=== PATIENT | female | born 1940 | race Caucasian/White ===

== ENCOUNTER 2018-03-28 15:39 | Inpatient (IN) | payer BC ==
[~2018-03-28] VITALS: Ht 170.2 cm; Wt 86.4 kg
[2018-03-28] VITALS (7 sets, daily range): BP systolic 121–190; BP diastolic 60–79
[~2018-03-28 15:39] MED LIST: AMBIEN 10 MG TA10 MG PO; AMBIEN 5 MG TABL5 M1 PO; ASPIR 8181 MG PO; BUTRANS1 EAC1 TD; CELEXA 20 MG TA20 M1 PO; CIPROFLOXACIN500 M1 PO; CLONAZEPAM 1 MG1 M1 PO; COZAAR 50 MG TA50 M1 PO; COZAAR100 MG PO; CYMBALTA60 MG PO; DIFLUCAN150 MG PO; EUCERIN CREME57 GM TOP; FISH OIL 1,2001 EAC4 PO; GLUCOPHAGE1000 MG PO; GLUCOPHAGE500 MG PO; HUMALOG100 UNIT/1 SUBQ; HYDROCODON-ACE1 EAC1 PO; HYDROCODON-ACE1 EAC7 PO; HYDROCODON-ACE1 EACH PO; HYDROCODONE-APA1 TA1 PO; IMMODIUM PO; LANTUS SOL100 UNIT/1 SUBQ; LANTUS SQ; LANTUS SUBQ; LANTUSSOLASTAR SUBQ; LEVEMIR SUBQ; LIDODERM 5%1 PATC1 TRANSDERM; LIORESAL 10 MG10 MG PO; LORTAB 5-500 T1 EAC1 PO; MACROBID 100 M100 M1 PO; METOPROLOL SUCC25 M1 PO; MIRALAX255 GM PO; MONISTAT 745 GM VG; NAPROSYN500 MG PO; NORCO 7.5-3251 EACH PO; NORVASC 5 MG TAB5 MG PO; NORVASC10 MG PO; NORVASC5 MG PO; NOVOLOG FLEX PEN SUBQ; NOVOLOG100 UNIT/1 SQ; OXYCODONE HCL5 M1 PO; OXYCONTIN10 M1 PO; PERCOCET 10-321 EACH PO; PERCOCET 5-3251 EACH PO; PERCOCET 7.5-31 EACH PO; PRILOSEC 20 MG20 MG PO; REMERON15 MG PO; ROXICODONE5 MG PO; SYMLIN0.6 MG/ML SQ; SYMLINPEN2700 MCG/2 SUBQ; TOPROL XL100 MG PO; VICODIN 5-5001 EACH PO; VICODIN ES 7.51 EACH PO; VICTOZA0.6 MG/0.1 SUBQ; WELCHOL 625 MG625 MG PO; XARELTO10 M1 PO
[2018-03-28 15:57] LABS: URINE BILIRUBIN NEGATIVE (Negative); URINE BLOOD NEGATIVE (Negative); URINE CLARITY CLEAR; URINE COLOR YELLOW; URINE GLUCOSE-RANDOM NEGATIVE (Negative); URINE KETONES NEGATIVE (Negative); URINE LEUKOCYTES-REFLEX NEGATIVE (Negative); URINE PROTEIN NEGATIVE (Negative); URINE SPECIFIC GRAVITY 1.015 (1.005-1.030); URINE UROBILINOGEN 0.2 E.U./dl (0.2-1.0)
[2018-03-28 16:06] LABS: URINE NITRITE-REFLEX POSITIVE (Negative)
[2018-03-28 16:08] LABS: BACTERIA-REFLEX >30 Many /HPF (None Seen); CRYSTALS None Seen /LPF (None Seen); HYALINE CASTS 0-3 Few /LPF (None Seen); SQUAMOUS 4-10 Moderate /LPF (0-3)
[2018-03-28 16:08] LABS: HEMATOCRIT 39.5 % (37.0-47.0); HEMOGLOBIN 12.8 gm/dL (12.0-15.0); MCHC 32.3 g/dL (28.0-37.0); MCV 86.5 fL (80.0-100.0); MPV 8.2 fl. (7.2-11.1); NUCLEATED RBCS 0 /100WBC; PLATELET COUNT* 417 thou/uL (150-400); RBC 4.57 mil/uL (4.20-5.00); RDW-CV 14.5 % (10.5-14.5)
[2018-03-28 16:10] LABS: URINE RBC 0-2 Rare /HPF (0-2); URINE WBC-REFLEX 0-5 Rare /HPF (0-5)
[2018-03-28 16:15] LABS: ANION GAP 12 mmol/L (7-16); BUN 20 mg/dL (7-18); CALCIUM 8.9 mg/dL (8.5-10.1); CHLORIDE 99 mmol/L (98-107); CO2 22 mmol/L (21-32); CREATININE 1.1 mg/dL (0.6-1.3); GLUCOSE 214 mg/dL (70-99); POTASSIUM 3.6 mmol/L (3.5-5.1); SODIUM 133 mmol/L (136-145)
--- NOTE | 2018-03-28 16:23 | NUR ---
NAVDEEP BOWEN APPLIED TO PT.
[2018-03-28 16:25] LABS: ALBUMIN 3.6 g/dL (3.4-5.0); ALKALINE PHOSPHATASE 102 U/L (46-116); MAGNESIUM 1.5 mg/dL (1.8-2.4); NT-PRO BRAIN NAT PEPTIDE 458 pg/mL (<300); SGOT 24 U/L (15-37); SGPT 25 U/L (30-65); TOTAL BILIRUBIN 0.2 mg/dL (<0.1-1.0); TOTAL PROTEIN 8.2 g/dL (6.4-8.2); TROPONIN-I LEVEL <0.06 ng/mL (<0.06)
[2018-03-28 16:29] LABS: ABSOLUTE EOSINOPHILS 0.2 thou/uL (0.0-0.7); ABSOLUTE LYMPHOCYTES 3.4 thou/uL (0.8-5.3); ABSOLUTE MONOCYTES 0.8 thou/uL (0.0-1.2); ABSOLUTE NEUTROPHILS 15.6 thou/uL (1.6-8.1); PLATELET ESTIMATE INCREASED
--- NOTE | 2018-03-28 16:31 | NUR ---
UPDATE FROM PT'S : PT'S STATES THAT THE PT HAD COMPLAINTS ALL NIGHT OF ABDOMINAL PAIN AND DID NOT SLEEP WELL. HE STATES THAT HE WOKE UP THIS MORNING AND WENT TO [facility], WHEN HE RETURNED HOME FROM [facility], THE PT WAS UNRESPONSIVE LYING IN BED. THAT IS WHEN PT'S CALLED EMS.
[2018-03-28 16:40] LABS: BE -4.9 mmol/L (-2 to +3); HCO3 21.4 mmol/L (22.0-26.0); PCO2 44.4 mmHg (35.0-45.0); pH 7.301 (7.340-7.450)
[2018-03-28 16:42] LABS: PO2 178.9 mmHg (75.0-100.0)
[2018-03-28 17:05] LABS: AMP/METHAMP Negative (Negative); BARBITURATES Negative (Negative); BENZODIAZEPINES Negative (Negative); COCAINE Negative (Negative); METHADONE Negative (Negative); OPIATES Negative (Negative); PCP Negative (Negative); THC Negative (Negative)
[2018-03-28 23:29] LABS: APTT 25.2 Seconds (25.0-31.3); INR 1.1; PROTIME 10.5 Seconds (9.20-11.50)
[2018-03-29] VITALS (26 sets, daily range): BP systolic 115–195; BP diastolic 54–113
--- NOTE | 2018-03-29 01:10 | NUR ---
PT. HAS BEEN CONSTANTLY MOANING, SAYING "PLEASE, PLEASE, PLEASE". WHEN ASKED WHAT IS BOTHERING HER, SHE IS UNABLE TO COMMUNICATE WHAT IS MAKING HER UPSET. WHEN ASKED IF SHE HURTS SHE GOES BACK AND FORTH BETWEEN YES AND NO. EXTERMELY RESTLESS. DR. GRIFFITH NOTIFIED, ORDER RECEIVED FOR ONETIME DOSE OF FENTANYL AND ATIVAN. PT. IS ALLERGIC TO ATIVAN, DID NOT GIVE. FENTANYL GIVEN, WILL CONTINUE TO MONITOR.
[2018-03-29 04:57] LABS: ABSOLUTE LYMPHOCYTES 2.5 thou/uL (0.8-5.3); ABSOLUTE MONOCYTES 1.3 thou/uL (0.0-1.2); ABSOLUTE NEUTROPHILS 13.8 thou/uL (1.6-8.1); BASOPHILS 0.2 %; EOSINOPHILS 0.2 %; HEMOGLOBIN 11.1 gm/dL (12.0-15.0); LYMPHOCYTES 14.2 %; MCH 27.7 pg (26.0-34.0); MCHC 32.5 g/dL (28.0-37.0); MONOCYTES 7.4 %; MPV 8.3 fl. (7.2-11.1); NUCLEATED RBCS 0 /100WBC; PLATELET COUNT* 375 thou/uL (150-400); RDW-CV 14.9 % (10.5-14.5); WBC 17.7 thou/uL (4.0-11.0)
[2018-03-29 05:01] LABS: CALCIUM 8.6 mg/dL (8.5-10.1); MAGNESIUM 1.8 mg/dL (1.8-2.4)
--- NOTE | 2018-03-29 05:57 | NUR ---
PT. HAS BEEN UP, ANXIOUS, RESTLESS THROUGHOUT NIGHT. CONFUSED. UNABLE TO COMMUNICATE CONCERNS VERBALLY. REORIENTED THROUGHOUT SHIFT. PT. FELL ASLEEP FOR THE FIRST TIME AT 0530, REMAINS ASLEEP AT THIS TIME. PT'S DAUGHTER, GALE, UPDATED THIS A.M. ON PT. STATUS. REMAINS ON 2L O2. SINUS RHYTHM. LEFT SUBCLAVIAN CENTRAL LINE REMAINS IN PLACE WITH IVF INFUSING. BED ALARM ON TO MAINTAIN SAFETY. PT. DOES NOT USE HER CALL LIGHT, IS NOT ABLE TO SUCCESSFULLY EXPRESS HER NEEDS. WILL CONTINUE TO MONITOR.
--- NOTE | 2018-03-29 18:22 | NUR ---
PT ASSESSMENT CHARTED. VSS THROUGHOUT SHIFT. PRN HYDROLAZINE GIVEN FOR ELEVATED BLOOD PRESSURE. PO MEDICATIONS STARTED WELL. PT'S MENTAL STATUS IS MUCH IMPROVED THIS AFTERNOON. PT IS ALERT AND ORIENTED TO PERSON, PLACE, AND SITUATION. PATIENT COMPLAINS OF PAIN IN HER HEAD 10/10 SOMEWHAT RELIEVED WITH TYLENOL. TEMPERATURE ELEVATED WELL WITH A T-MAX OF 100.4 THIS SHIFT. PT IS VERY RESTLESS THIS EVENING. 1X DOSE OF GEODON GIVEN PER PHYSICIAN REQUEST. IT WAS GIVEN LATER IN THE DAY DUE TO PATIENT RESTING ON HER OWN WITHOUT DIFFICULTY THIS MORNING. I SPOKE WITH HE STATED THAT HE WASN'T SURE WHAT MEDICATION SHE WAS OUT OF. [facility] WAS CONTACTED FOR A LIST BUT THEY ARE CLOSED TODAY. PT WAS ABLE TO VERBALIZE WITH ME LATER IN THE DAY AND TELL ME THAT SHE IS OUT OF AMBIEN AT HOME AND HAS NOT HAD IT FOR 3 DAYS.
--- NOTE | 2018-03-29 20:24 | CON ---
[address] [address] CONSULTATION Name: BETO OBREGON Room: [address] IN M.R.#: [id number] Admission: 03/28/18 Attend Phys: Kwadwo Kirkpatrick MD Discharge: Date of : 42 Report #: [id number] THIS REPORT FOR: //name// CC: Kwadwo Kirkpatrick [facility] unknown DATE OF SERVICE: 03/29/2018 HISTORY OF PRESENT ILLNESS: This is a 77-year-old female patient who is not able to provide any reliable history. This patient neither cooperate with the examination nor provide any history. According to the , this patient has some issues with the back and knee. She spends according to her about 22 hours in the bed, but she does get up. She does not drive. She does have some memory issue, but in the last few days, she has become worse. The history is not available at all from the family and the history is very poor from the whom I called and talked to. This patient is not sleeping well. She does have a history of depression, it is not clear whether she is taking the medication properly. She has been given some oil of marijuana for her to sleep. REVIEW OF SYSTEMS: I tried to carry out the 14-point review of systems from the record and the patient. She has a history of hysterectomy, breast cysts, hemorrhoidectomy, diabetes and she has a pretty significant history of depression. This is all the 14-point review of system I can carry out. PAST MEDICAL HISTORY: Positive for what looks like pretty compromised quality of life, but that appeared to be secondary to knee problem. FAMILY HISTORY: Negative for early age stroke. SOCIAL HISTORY: The says the patient does not drink alcohol. PHYSICAL EXAMINATION: Almost impossible. I tried to carry it out multiple times, but she will not cooperate. I tried to do the higher function. She will not tell me what month or what day it is. I tried to do the cranial nerve examination, she will not cooperate. She moves all 4 extremities the best I can tell. She does not have any meningeal sign the best I can tell. Respiratory examination is unremarkable. She is moderately built individual. Her vision and hearing look adequate. Her blood pressure is 147/58, respiration is 13, pulse is 81, temperature is 99.3. LABORATORY DATA: She does have finding consistent with bladder infection and her white count is high. According to the , she has become like this in the past when she had a urinary tract infection. IMPRESSION: Very difficult to form in this patient as no reliable history is available. This patient probably has encephalopathy [place] [address] CONSULTATION Name: BETO OBREGON Room: [address] IN .R.#: [id number] Admission: 03/28/18 Attend Phys: Kwadwo Kirkpatrick MD Discharge: Date of : 41 Report #: [id number] infection, but central nervous system infection cannot be fully excluded. RECOMMENDATION: I talked to the patient's because the patient does not understand everything. I recommended proceeding with further workup including MRI and a spinal tap. He wants to proceed with MRI, but does not want to proceed with spinal tap at the moment. I discussed with him that it is my recommendation we do proceed because she is running temperature and has an altered mental status, but he does not want me to proceed that, but indicated he will do that if MRI is negative, but do understand the best thing is to do it as early as possible. Thank you very much for this referral and we will arrange this workup and go from there. <ELECTRONICALLY SIGNED> By: Karlos Monet MD 03/29/184 1039 [id number] Monet MD /nt
--- NOTE | 2018-03-29 23:54 | NUR ---
PT ALERT X3, TO SELF, PLACE, AND DAY, RESTLESS, ANXIOUS, MULTIPLE NEEDS, C/O GENERALIZED PAIN, TYLENOL 650MG PO GIVEN FOR PAIN MANAGEMENT AND FEVER 101.5 CORE, C/O INSOMNIA, REQUESTED SOMETHING FOR SLEEP, PT STATES NORMALLY TAKES AMBIEN FOR REST HOME MEDICATION, VERIFIED AMBIEN ON [facility] MEDICATION LIST, CALLED AND SPOKE WITH DR SAWYER MILLINERY COPYIST FOR DR GRIFFITH, NEW ORDERS RECEIVED FOR AMBIEN 15MG PO QHS PRN, PT C/O "CANT BREATH" SA02 =>94%, RESP EVEN AND NON-LABORED ON RA, REFUSED OXYGEN VIA NC, STATES OXYGEN CAUSES "STUFFY NOSE", REQUESTED AND RECEIVED HS SNACK, STATES "CANT SWALLOW", NO DIFFICULTY NOTED WITH EATING OR DRINKING AT THIS TIME, ABLE TO CONSUME TURKEY SANDWHICH WITHOUT DIFFICULTY WITH ONLY SET UP ASSIST, BLANKETS REOMVED TO ASSIST DECREASED HYPERTHERMIA WITH FAN IN USE, EMOTIONAL SUPPORT PROVIDED, BED ALARM ON FOR SAFETY, CALL LIGHT IN REACH, WILL CONTINUE TO MONITOR.
[2018-03-30] VITALS (7 sets, daily range): BP systolic 109–192; BP diastolic 50–96
[2018-03-30 04:52] LABS: ABSOLUTE BASOPHILS 0.1 thou/uL (0.0-0.2); ABSOLUTE EOSINOPHILS 0.2 thou/uL (0.0-0.7); ABSOLUTE LYMPHOCYTES 3.5 thou/uL (0.8-5.3); ABSOLUTE MONOCYTES 1.5 thou/uL (0.0-1.2); ABSOLUTE NEUTROPHILS 11.2 thou/uL (1.6-8.1); BASOPHILS 0.5 %; EOSINOPHILS 1.3 %; HEMATOCRIT 38.7 % (37.0-47.0); HEMOGLOBIN 12.5 gm/dL (12.0-15.0); LYMPHOCYTES 21.2 %; MCH 27.8 pg (26.0-34.0); MCHC 32.3 g/dL (28.0-37.0); MCV 85.9 fL (80.0-100.0); MPV 7.9 fl. (7.2-11.1); NUCLEATED RBCS 0 /100WBC; PLATELET COUNT* 428 thou/uL (150-400); RBC 4.51 mil/uL (4.20-5.00); RDW-CV 15.2 % (10.5-14.5); WBC 16.4 thou/uL (4.0-11.0)
[2018-03-30 05:18] LABS: ALBUMIN 3.1 g/dL (3.4-5.0); CALCIUM 8.6 mg/dL (8.5-10.1); CREATININE 0.9 mg/dL (0.6-1.3); TOTAL BILIRUBIN 0.5 mg/dL (<0.1-1.0); TOTAL PROTEIN 7.5 g/dL (6.4-8.2)
--- NOTE | 2018-03-30 05:41 | NUR ---
POTSSIUM LEVEL LOW 3.0 THIS AM, WILL INITATE ELECTROLYTE PROTOCOL TOTAL 120MEQ IV VIA INFUSION PUMP OVER 12 HOURS, BAG 11/07 TO BE STARTED AT THIS TIME.
--- NOTE | 2018-03-30 09:39 | EKG ---
[place] [address] ELECTROCARDIOGRAM REPORT Name: BETO OBREGON Room: [address] IN [facility]#: [id number] Admission: 03/28/18 Attend Phys: Kwadwo Kirkpatrick MD Discharge: Date of : 41 Report #: [id number] THIS REPORT FOR: //name// [facility] ED Test Date: 2018-03-28 Test Time: 17:39:10 Pat Name: BETO OBREGON Department: Room: Gender: F [employer] Manager: [facility] : 1940 Requested By: Za Trujillo Order Number: [id number] MD: Tate Uribe Measurements Intervals Merkel Rate: 58 P: 56 TX: 149 QRS: -2 QRSD: 100 T: 123 QT: 476 QTc: 468 Interpretive Statements Sinus rhythm Anteroseptal infarct, old Abnormal T, consider ischemia, lateral leads Compared to ECG 07/16/2013 07:54:22 Myocardial infarct finding now present T-wave abnormality now present Possible ischemia now present Electronically Signed On 03-30-2018 9:39:41 CDT by Tate Uribe [email or web address] <ELECTRONICALLY SIGNED> By: Tate Uribe MD, [facility] 03/30/18 0939 1739 1739 Tate Uribe MD, [facility] /EPI
--- NOTE | 2018-03-30 10:30 | NUR ---
INTERDISICPLINARY ROUNDS: MET WITH PT AND SPOUSE TO DISCUSS HOME SITUAITON/DC PLANNING. PT LIVES WITH SPOUSE. HE ASSISTS HER NEEDED WITH ADLS. PT USES WALKER IN THE HOUSE AND W/C WHEN OUTSIDE. THEY GO OUT 3X/WK FOR MEALS OR TO [facility]. PT HAS SHOWER BENCH AND HOSPITAL BED ALSO. SHE HAS HAD HH IN THE PAST WITH [facility] AND HAS BEEN TO [facility] AND [facility] FOR SNF. SPOUSE IS DPOA. UNSURE OF PT'S DC NEEDS AT THIS TIME. WILL FOLLOW
--- NOTE | 2018-03-30 14:19 | 2DMMODE ---
[place] [address] 2 D/M-MODE ECHOCARDIOGRAM Name: BETO OBREGON Room: [address] IN [facility]#: [id number] Admission: 03/28/18 Attend Phys: Kwadwo Kirkpatrick, Discharge: Date of : 42 Date of Service: 03/30/18 1418 Report #: [id number] THIS REPORT FOR: //name// APPROVED REPORT Study performed: 03/30/2018 10:10:46 EXAM: Comprehensive 2D, Doppler, and color-flow Echocardiogram Patient Location: In-Patient Room #: [facility] Status: routine BSA: 2.01 HR: 85 bpm BP: 109/50 mmHg Rhythm: NSR Other Information Study Quality: Good Indications Abnormal ECG 2D Dimensions LVEF(%): 78.89 (>50%) IVSd: 9.92 (7-11mm) LVOT Diam: 22.23 (18-24mm) LVDd: 47.27 mm PWd: 9.46 (7-11mm) LVDs: 24.81 (25-40mm) Aortic Root: 30.36 mm Oneil's LVEF: 78.89 % Volumes Left Atrial Volume (Systole) LA ESV Index: 24.20 mL/m2 Aortic Valve AoV Peak Elier.: 1.69 m/s AO Peak Gr.: 11.38 mmHg LVOT Max P.94 mmHg AO Mean Gr.: 6.23 mmHg LVOT Mean P.11 mmHg LVOT Max V: 1.41 m/s AO V2 VTI: 29.98 cm LVOT Mean V: 0.93 m/s KEVIN (VTI): 3.50 cm2 LVOT V1 VTI: 27.06 cm Mitral Valve E/A Ratio: 0.83 [place] [address] 2 D/M-MODE ECHOCARDIOGRAM Name: BETO OBREGON Room: [address] IN [facility]#: [id number] Admission: 03/28/18 Attend Phys: Kwadwo Kirkpatrick, Discharge: Date of : 42 Date of Service: 03/30/18 1418 Report #: [id number] MV Decel. Time: 176.64 ms MV E Max Elier.: 0.82 m/s MV PHT: 51.23 ms MVA (PHT): 4.29 cm2 TDI E/Lateral E': 7.45 E/Medial E': 8.20 Medial E' Elier.: 0.10 m/s Lateral E' Elier.: 0.11 m/s Pulmonary Valve PV Peak Elier.: 1.07 m/s PV Peak Gr.: 4.57 mmHg Tricuspid Valve TR Peak Gr.: 33.56 mmHg RVSP: 38.00 mmHg Left Ventricle The left ventricle is normal size. There is normal LV segmental wall motion. There is normal left ventricular wall thickness. Left ventricular systolic function is normal. LVEF is 60-65%. Grade I - abnormal relaxation pattern. Right Ventricle The right ventricle is normal size. The right ventricular systolic function is normal. Atria The left atrium size is normal. The right atrium size is normal. Aortic Valve Mild aortic valve sclerosis. No aortic regurgitation is present. There is no aortic valvular stenosis. Mitral Valve The mitral valve is normal in structure. Trace mitral regurgitation. No evidence of mitral valve stenosis. Tricuspid Valve The tricuspid valve is normal in structure. Trace tricuspid regurgitation. The RVSP is 35-40 mmHg. Pulmonic Valve The pulmonary valve is normal in structure. There is no pulmonic [place]vular [place] [address] 2 D/M-MODE ECHOCARDIOGRAM Name: BETO OBREGON Room: [address] IN [facility]#: [id number] Admission: 03/28/18 Attend Phys: Kwadwo Kirkpatrick, Discharge: Date of : 42 Date of Service: 03/30/18 1418 Report #: [id number] Great Vessels The aortic root is normal in size. IVC is normal in size and collapses with >50% inspiration Pericardium There is no pericardial effusion. <Conclusion> The left ventricle is normal size. There is normal left ventricular wall thickness. Left ventricular systolic function is normal. LVEF is 60-65%. Grade I - abnormal relaxation pattern. Mild aortic valve sclerosis. There is no aortic valvular stenosis. Trace mitral regurgitation. Trace tricuspid regurgitation. The RVSP is 35-40 mmHg. IVC is normal in size and collapses with >50% inspiration <ELECTRONICALLY SIGNED> By: Dez Peterson MD, [facility] 03/30/18 1418 17 1418 Dez Peterson MD, FACC /INF
--- NOTE | 2018-03-30 15:12 | EKG ---
[place] [address] ELECTROCARDIOGRAM REPORT Name: BETO OBREGON Room: [address] ADM IN M.R.#: [id number] Admission: 03/28/18 Attend Phys: Kwadwo Kirkpatrick MD Discharge: Date of : 42 Report #: [id number] THIS REPORT FOR: //name// [facility] ED Test Date: 2018-03-28 Test Time: 15:41:54 Pat Name: BETO OBREGON Department: Room: [address] Gender: F Hassock Maker: Cira MARTINEZ : 1940 Requested By: Za Trujillo Order Number: [id number] Reading MD: Tate Uribe Measurements Intervals Emma Rate: 63 P: 46 CA: 157 QRS: -8 QRSD: 102 T: 122 QT: 451 QTc: 462 Interpretive Statements Sinus rhythm Probable left atrial enlargement LVH with secondary repolarization abnormality Anterior Q waves, possibly due to LVH Compared to ECG 07/16/2013 07:54:22 Left ventricular hypertrophy now present Q waves now present Electronically Signed On 03-30-2018 15:11:52 CDT by Tate Uribe [email or web address] <ELECTRONICALLY SIGNED> By: Tate Uribe MD, [facility] 03/30/18 1511 1541 1541 Tate Uribe MD, [facility] /EPI
--- NOTE | 2018-03-30 16:10 | NUR ---
PHARMACY CONTACTED AND PRESCRIPTION LIST PLACED IN PT'S CHART IN MEDICATION SECTION. PT C/O OF HEADACHE. TYLENOL ADMININSTERED PER DEC. POTASSIUM REPLACED.
--- NOTE | 2018-03-30 18:04 | NUR ---
RECEIEVED REPORT FROM ICU. TRANSFERRED PT RO ROOM 220. ALERT AND ORIENTED X4. VITAL SIGNS TAKEN AND RECORDED. PHYSICAL ASSESMENT COMPLETED AND AGREES WITH PREVIOUS ASSESSMENT EXCEPT THE PT HAS A HISTORY OF FALL FOR THE PAST 3 MOS, HINDS CATHETER WAS REMOVED IN ICU AT 1000, HAS A CENTRAL LINE ON HER LEFT CHEST PATENT AND INTACT. HAS NOT VOIDED SINCE HINDS CATHETER REMOVAL. BLADDER SCAN INITIATED WITH 437 ML OF URINE. ENCOURAGE TO DRINK FLUIDS.PT IS ON RA. SR ON TELE. PT ORIENTED TO ROOM AND CALL LIGHT.PT COMMUNICATES UNDERSTANDING. CALL LIGHT WITHIN REACH. WILL CONTINUE TO MONITOR PT.
[2018-03-31] VITALS: BP 156/76
[2018-03-31 04:00] VITALS: BP 165/69
--- NOTE | 2018-03-31 06:47 | NUR ---
PATIENT PROGRESSING TOWARDS GOALS: PATIENT REMAINS A&OX4, FORGETFUL AT TIMES. PATIENT REMAINS ON ROOM AIR WITH O2 SATS >92%. PATIENT VOIDING PER BEDPAN THIS SHIFT WITH NO ISSUES OF RETENTION. PATIENT HAS HAD TWO EPISODES OF DIARRHEA THIS AM. IVF INFUSING PER ORDERS. SR ON TELE. HOURLY ROUNDING OBSERVED. CALL LIGHT WITHIN REACH
[2018-03-31 08:00] VITALS: BP 165/71
--- NOTE | 2018-03-31 08:28 | NUR ---
I have reviewed the documentation by 03/30/18 from to 03/31/18 and I concur with it. ARAM HARGROVE.
[2018-03-31 09:20] LABS: ABSOLUTE BASOPHILS 0.1 thou/uL (0.0-0.2); ABSOLUTE EOSINOPHILS 0.8 thou/uL (0.0-0.7); ABSOLUTE LYMPHOCYTES 2.4 thou/uL (0.8-5.3); ABSOLUTE NEUTROPHILS 11.2 thou/uL (1.6-8.1); BASOPHILS 0.8 %; EOSINOPHILS 5.2 %; HEMATOCRIT 36.6 % (37.0-47.0); HEMOGLOBIN 11.6 gm/dL (12.0-15.0); LYMPHOCYTES 15.6 %; MCH 27.7 pg (26.0-34.0); MCHC 31.8 g/dL (28.0-37.0); MONOCYTES 6.3 %; MPV 7.8 fl. (7.2-11.1); NUCLEATED RBCS 0 /100WBC; PLATELET COUNT* 387 thou/uL (150-400); POLYS 72.1 %; WBC 15.6 thou/uL (4.0-11.0)
[2018-03-31 09:29] LABS: ALBUMIN 2.9 g/dL (3.4-5.0); CALCIUM 8.8 mg/dL (8.5-10.1); CREATININE 1.1 mg/dL (0.6-1.3); POTASSIUM 3.8 mmol/L (3.5-5.1); TOTAL BILIRUBIN 0.4 mg/dL (<0.1-1.0); TOTAL PROTEIN 7.1 g/dL (6.4-8.2)
--- NOTE | 2018-03-31 11:46 | NUR ---
ASSUMED CARE OF PATIENT AFTER REPORT. PT IS ALERT AND ORIENTEDX4 AND FORGETFUL. VITAL SIGNS TAKEN AND RECORDED. PHYSICAL ASSESSMENT COMPLETED AND CHARTED. PT ON RA. LEFT SUBCLAVIAN PORT PATENT AND INTACT AND IVF INFUSING WELL. PT IS SR ON TELE. PT CLAIMED THAT SHE CANT SLEEP LAST NIGHT.PT HAD A LOOSE BOWEL MOVEMENT 4X THIS AM- INFORMED DR. GRIFFITH.WILL SEND STOOL FOR CULTURE. ISOLATION PROTOCOL INITIATED DUE TO ESBL IN URINE. RED YEAST RASH NOTED UNDER BREAST-DR GRIFFITH INFORMED. ORDERED FOR NYSTATIN CREAM. DENIES PAIN AT THIS TIME. CALL LIGHT WITHIN REACH. WILL CONTINUE TO MONITOR PT.
[2018-03-31 12:09] VITALS: BP 167/78
--- NOTE | 2018-03-31 13:14 | CON ---
[address] [address] CONSULTATION Name: BETO OBREGON Room: [address] IN .R.#: [id number] Admission: 03/28/18 Attend Phys: Kwadwo Kirkpatrick MD Discharge: Date of : 41 Report #: [id number] THIS REPORT FOR: //name// CC: Kwadwo LAMAS unknown DATE OF SERVICE: 03/30/2018 ATTENDING PHYSICIAN: Kwadwo Kirkpatrick MD REASON FOR EVALUATION: Encephalopathy, complicated urinary tract infection. HISTORY OF PRESENT ILLNESS: Chart reviewed, patient examined. This is a 77-year-old with diabetes mellitus type 2, some hypertension who was admitted with profound encephalopathy with unresponsiveness. Apparently, the patient's family found her. It is notable she had some fevers. Evaluation showed evidence of bacteriuria. Urine culture with growth of greater than 10 to the fifth gram-negative rods. Blood cultures are sterile thus far. She was empirically started on broad-spectrum therapy with vancomycin as well as Zosyn. She is more responsive today. She seems to be mostly oriented. Complains of dry mouth, had been febrile up to 101.3 overnight. She is afebrile this morning. Denies significant pulmonary or gastrointestinal related complaints. ALLERGIES: ATORVASTATIN, LOVASTATIN AND LORAZEPAM. MEDICATIONS: Include losartan, metoprolol, duloxetine, vancomycin, Zosyn, enoxaparin, pantoprazole, ondansetron, levothyroxine was given as well. PAST MEDICAL HISTORY: Diabetes, hypertension, osteoarthritis, previous orthopedic surgeries including right total knee arthroplasty, left total knee arthroplasty, hemorrhoidectomy, hysterectomy. SOCIAL HISTORY: Nonsmoker, no ethanol. FAMILY HISTORY: Noncontributory. REVIEW OF SYSTEMS: As above. PHYSICAL EXAMINATION: GENERAL: Appears chronically ill, undernourished. She is pleasant, cooperative now and she seems to be responding appropriately. VITAL SIGNS: Temperature 99.3 with a T-max overnight of 101.3, pulse 107, respirations 19, blood pressure 166/82. SKIN: Warm, dry, no rashes. NECK: I think there are some arthritic type changes in the cervical spine. I do not think [place] [address] CONSULTATION Name: OBREGONBETO Room: [address]#: [id number] Admission: 03/28/18 Attend Phys: Kwadwo Kirkpatrick MD Discharge: Date of : 41 Report #: [id number] LUNGS: Diminished breath sounds. HEART: Tachycardic, regular. I do not appreciate any murmur. ABDOMEN: Soft. I do not appreciate any peritoneal signs. GENITOURINARY AND RECTAL: Deferred. LABORATORY DATA: MRI of the head shows mild to moderate generalized parenchymal volume loss and moderate chronic small vessel ischemic changes without evidence of acute recent infarct. Blood cultures sterile thus far. TSH of 1.478. CBC: White count of 16.4, H and H 12.5 and 38.7, platelets of 428. Electrolytes: Sodium 139, potassium 3.0, chloride 105, bicarbonate is 23, BUN and creatinine 7 and 0.9. Liver functions unremarkable. Albumin of 3.1, total protein 7.5. CRP is 73.1. Urine culture with greater than 10 to the fifth gram-negative rods. ASSESSMENT: Encephalopathy, urinary tract infection. I think this is likely cause of the fevers. We will continue current broad spectrum therapy. Await results. I am sure we will pare down pretty quickly, perhaps transition to oral antibiotics in the next 2-3 days. Continue to monitor expectantly. At this point, I do not think there is need for any sort of evaluation for possible meningitis or meningoencephalitis and discussed with Dr. Kirkpatrick. <ELECTRONICALLY SIGNED> By: Young Preston MD 03/31/18 1314 1140 [id number] Preston MD /nt
[2018-03-31 16:15] VITALS: BP 199/82
--- NOTE | 2018-03-31 17:05 | CON ---
[address] [address] CONSULTATION Name: BETO OBREGON Room: [address] IN M.R.#: [id number] Admission: 03/28/18 Attend Phys: Kwadwo Kirkpatrick MD Discharge: Date of : 42 Report #: [id number] THIS REPORT FOR: //name// CC: Kwadwo Kirkpatrick [facility] DATE OF SERVICE: 03/29/2018 HISTORY OF PRESENT ILLNESS: The patient is a 77-year-old white female who I was asked to see in the hospital after she was noted to have an abnormal ECG. The patient has had multiple hospitalizations here at [place]. She actually underwent a right knee replacement back in 2010. She underwent surgery on her left knee for bursitis in 2011. She has had multiple visits to the pain clinic for chronic back pain. She was here in 2012 with fatigue and urinary tract infection and she was found to be dehydrated. She has had multiple recent visits to the pain clinic for back pain. Yesterday, the patient was found to be less responsive in the morning. Paramedics were summoned. She was brought to the Emergency Room here at [place]. She was drowsy, but had no significant complaints. A central line was placed. She was noted to have an abnormal ECG and Cardiology consultation requested. Today, the patient is not oriented to place or time. However, she is awake and answers questions. She denies any chest pain, shortness of breath, syncope. PAST MEDICAL HISTORY: Otherwise significant for hemorrhoidectomy, tonsillectomy, hysterectomy, high blood pressure, diabetes. MEDICATIONS: Includes a long list including Cymbalta, amlodipine, aspirin, baclofen, losartan, metoprolol, Victoza, insulin, omeprazole. ALLERGIES: SHE HAS INTOLERANCE TO LOVASTATIN AND ATORVASTATIN. FAMILY HISTORY: She notes her mother has heart disease. SOCIAL HISTORY: She is and lives with her in [place], [place]. Her is retired, although he still drives a bus. The patient is not working. She has no history of smoking or alcohol abuse. REVIEW OF SYSTEMS: She denied a history of stroke, asthma. She has had a peptic ulcer. She has chronic kidney disease, no cancer. She has chronic back pain. She has a history of hypercholesterolemia. PHYSICAL EXAMINATION: GENERAL: Revealed an elderly overweight female lying in bed. She appeared in no distress. VITAL SIGNS: She had a blood pressure of 140/60, pulse 80, [place] [address] CONSULTATION Name: BETO OBREGON Room: [address]#: [id number] Admission: 03/28/18 Attend Phys: Kwadwo Kirkpatrick MD Discharge: Date of : 42 Report #: [id number] HEENT: She is anicteric. Conjunctivae pale. Mucous membranes appear dry. NECK: Veins nondistended. No carotid bruits. CHEST: Clear to auscultation. CARDIAC: Regular rate and rhythm. ABDOMEN: Obese, soft, nontender. EXTREMITIES: Had no edema. Dorsalis pedis pulse cannot be palpated. SKIN: Cool and dry. NEUROLOGIC: Nonfocal. LABORATORY DATA: Her ECG on admission showed a sinus rhythm with T-wave inversion in 1, aVL as well as V4, V5 and V6. Workup, she actually had an echocardiogram back in 2013 that showed ejection fraction 60% with no PFO by bubble study. Her x-rays in the Emergency Room yesterday, CT scan of the head performed without contrast showed no acute abnormality. Chest x-ray showed cardiomegaly, elevated right hemidiaphragm, no pneumonia. Her lab work so far sodium 140, BUN 13, creatinine 1.0, glucose 94. Liver function studies were normal. Troponins all 0.06. BNP 458. Her white blood cell count 17.7, hemoglobin 11, hematocrit 34. IMPRESSION AND RECOMMENDATIONS: 1. Confusion. Reason unclear. The patient was not hypoglycemic. No evidence of stroke. No history to suggest a seizure or drug abuse. 2. Abnormal ECG, suspect secondary to hypertension. I would recommend an EKG. 3. Obesity. 4. Hypertension. The patient has been on an ARB, beta urvashi and calcium urvashi. 5. Diabetes. 6. Hyperlipidemia. The patient cannot tolerate statin drugs. 7. Chronic back pain. The patient has been on muscle relaxants. <ELECTRONICALLY SIGNED> By: Tate Uribe MD, [facility]ACC 03/31/18 1705 1300 [id number] Uribe MD, FACC /nt
--- NOTE | 2018-03-31 17:47 | NUR ---
ORDER RECEIVED TO DISCONTINUE CENTRAL LINE. PERIPHERAL LINE INSERTED AT RIGHT WRIST G22 PATENT AND INTACT. DENIES ANY PAIN OR DISCOMFORT.SR ON TELE. UP WITH 1 ASSIST. STILL FOR STOOL CULTURE FOR CDIFF. CALL LIGHT WITHIN REACH. WILL CONTINUE TO MONITOR PT.
--- NOTE | 2018-03-31 18:39 | NUR ---
THIS NURSE AGREES WITH CHARTING AND DOCUMENTATION COMPLETED BY CEDRIC FINN RN.
[2018-03-31 20:00] VITALS: BP 157/73
[2018-04-01] VITALS: BP 174/75
--- NOTE | 2018-04-01 00:39 | NUR ---
RECEIVED REPORT AND ASSUMED CARE OF PATIENT AT 1930. ALLEY CLEANER IN PLACE TRACING SR. ASSESSMENT AND VITALS COMPLETED CHARTED, VSS. PATIENT A&OX4, VERY FORGETFUL AND ASKING THE SAME QUESTIONS MULTIPLE TIMES. PATIENT'S CAME TO VISIT, INFORMED PLAN OF CARE AND ANSWERED HIS QUESTIONS WELL. PATIENT REQUESTING SOMETHING MORE TO HELP HER SLEEP, REMINDED PATIENT THAT DAY SHIFT RN HAD ASKED THE PHYSICIAN AND NO NEW ORDERS HAVE BEEN RECEIVED. PATIENT ENCOURAGED TO REDUCE NOISE AND STIMULI, INCLUDING LIGHTS. PATIENT STATES SHE "SLEEPS WITH THE LIGHT ON." PATIENT HAS C/O HEADACHE, MEDICATIONS ADMINISTERED PER EMAR. GOAL IS TO REST COMFORTABLY WITH EFFECTIVE PAIN CONTROL. CALL LIGHT WITHIN REACH
[2018-04-01 04:00] VITALS: BP 162/76
[2018-04-01 06:29] LABS: ABSOLUTE BASOPHILS 0.2 thou/uL (0.0-0.2); ABSOLUTE EOSINOPHILS 1.1 thou/uL (0.0-0.7); ABSOLUTE LYMPHOCYTES 3.1 thou/uL (0.8-5.3); ABSOLUTE MONOCYTES 0.9 thou/uL (0.0-1.2); ABSOLUTE NEUTROPHILS 7.7 thou/uL (1.6-8.1); BASOPHILS 1.3 %; EOSINOPHILS 8.3 %; HEMATOCRIT 36.4 % (37.0-47.0); HEMOGLOBIN 11.7 gm/dL (12.0-15.0); MCH 27.7 pg (26.0-34.0); MCV 86.3 fL (80.0-100.0); MONOCYTES 7.1 %; NUCLEATED RBCS 0 /100WBC; PLATELET COUNT* 396 thou/uL (150-400); POLYS 59.3 %; RBC 4.21 mil/uL (4.20-5.00); RDW-CV 15.4 % (10.5-14.5)
[2018-04-01 06:42] LABS: CALCIUM 9.1 mg/dL (8.5-10.1); CREATININE 0.9 mg/dL (0.6-1.3); POTASSIUM 3.5 mmol/L (3.5-5.1); TOTAL BILIRUBIN 0.4 mg/dL (<0.1-1.0); TOTAL PROTEIN 7.4 g/dL (6.4-8.2)
[2018-04-01 08:11] VITALS: BP 155/80
--- NOTE | 2018-04-01 10:49 | NUR ---
ASSUMED CARE OF PT AFTER REPORT. PT IS ALERT AND ORIENTED X4. VITAL SIGNS TAKEN AND RECORDED. PHYSICAL ASSESSMENT COMPLETED AND CHARTED. PT ON RA WITH 96% O2 SAT. SR ON TELE. CLAIMED SHE CANT SLEEP LAST NIGHT AND WANTS AMBIEN- DR GRIFFITH TALKED TO THE PT. STILL FOR STOOL CULTURE. AWAITING FOR SPECIMEN. WITH ORDER FOR STATUS CHANGE TO MED-SURG. DENIES ANY PAIN OR DISCOMFORT AT THIS TIME. CALL LIGHT WITHIN REACH. WILL CONTINUE TO MONITOR PT.
--- NOTE | 2018-04-01 16:27 | NUR ---
CONTACT ISOLATION OBSERVED DUE TO ESBL IN URINE. SEMI FORMED STOOL SENT TO LAB FOR C. DIFF BUT WAS CANCELLED BECAUSE IT WAS NOT FIT FOR CULTURE. PT REQUESTED FOR ANTIDIARRHEAL MEDS. 4MG OF LOPERAMIDE 1X GIVEN PER DR MAE'S ORDER. PHYSICAL THERAPIST SEEN HER BUT REFUSED FOR EVAL & TREATMENT BECAUSE SHE JUST GOT INTO BED. COMPLAINED OF RIGHT HIP PAIN WITH PAIN SCALE OF 7/10- 1 TAB OF TRAMADOL GIVEN. ORDERS RECEIVED TO TRANSFER PT TO [facility]. REPORT CALLED TO NURSE TO ASSUME CARE WITH ALL QUESTIONS AND CONCERNS ADDRESSED.PT TRANSFERRED WITH BELONGINGS TO [facility] PER TECH VIA WHEELCHAIR AT 1635. NO PROBLEMS TO NOTE AT TIME OF TRANSFER.
--- NOTE | 2018-04-01 18:36 | NUR ---
PATIENT ARRIVED TO FLOOR FROM TELEMETRY UNIT, REPORT RECEIVED FROM CEDRIC. PATIENT SETTLED TO ROOM. PATIENT IS UP AT SIDE OF BED VISITING WITH FAMILY AT THIS TIME. PATIENT DENIES ANY PAIN. PATIENT IS ALERT AND ORIENTED. PATIENT IS UP WITH ASSIST OF ONE TO BEDSIDE COMMODE. PATIENT DENIES ANY NEEDS AT THIS TIME. CALL LIGHT WITHIN REACH. WILL CONTINUE TO MONITOR.
[2018-04-01 23:41] VITALS: BP 181/79
--- NOTE | 2018-04-02 05:36 | NUR ---
PATIENT SLEPT WELL DURING THIS SHIFT. PT USES CALL LIGHT APPROPRIATELY FOR ASSISTANCE TO BSC. PT VOIDS CLEAR YELLOW URINE. FLUIDS INFUSING PER DR ORDER. PT IS IN ROOM AIR. PT REQUESTING TO WEAR BRIEFS. BLOOD SUGAR AT 2100 = 154; HUMALOG 3 UNITS GIVEN. FREQUENTLY USED ITEMS AND CALL LIGHT WITHIN REACH. SIDERAILS UPX3 AND BED ALARM ON. WILL CONTINUE TO MONITOR.
[2018-04-02 07:50] VITALS: BP 167/82
[2018-04-02 09:59] LABS: URINE BILIRUBIN NEGATIVE (Negative); URINE BLOOD NEGATIVE (Negative); URINE CLARITY CLEAR; URINE COLOR YELLOW; URINE GLUCOSE-RANDOM NEGATIVE (Negative); URINE KETONES NEGATIVE (Negative); URINE LEUKOCYTES-REFLEX NEGATIVE (Negative); URINE NITRITE-REFLEX NEGATIVE (Negative); URINE PROTEIN NEGATIVE (Negative); URINE UROBILINOGEN 0.2 E.U./dl (0.2-1.0)
[2018-04-02 10:51] LABS: ABSOLUTE BASOPHILS 0.1 thou/uL (0.0-0.2); ABSOLUTE EOSINOPHILS 0.5 thou/uL (0.0-0.7); ABSOLUTE MONOCYTES 0.7 thou/uL (0.0-1.2); ABSOLUTE NEUTROPHILS 7.9 thou/uL (1.6-8.1); EOSINOPHILS 4.5 %; HEMOGLOBIN 12.1 gm/dL (12.0-15.0); MCH 27.7 pg (26.0-34.0); MCHC 31.9 g/dL (28.0-37.0); MCV 86.8 fL (80.0-100.0); MONOCYTES 6.3 %; MPV 7.9 fl. (7.2-11.1); NUCLEATED RBCS 0 /100WBC; PLATELET COUNT* 401 thou/uL (150-400); POLYS 70.2 %; RBC 4.38 mil/uL (4.20-5.00); RDW-CV 14.8 % (10.5-14.5); WBC 11.3 thou/uL (4.0-11.0)
[2018-04-02 11:19] LABS: ALBUMIN 3.3 g/dL (3.4-5.0); CALCIUM 9.2 mg/dL (8.5-10.1); POTASSIUM 3.7 mmol/L (3.5-5.1); TOTAL BILIRUBIN 0.3 mg/dL (<0.1-1.0); TOTAL PROTEIN 7.3 g/dL (6.4-8.2)
[2018-04-02 11:31] VITALS: BP 167/82
[2018-04-02 12:19] VITALS: BP 167/82
--- NOTE | 2018-04-02 12:21 | NUR ---
CANDELARIO met with pt to discuss safe dc planning. Pt to dc home with today and HH services to follow. Pt preference for [facility]. CANDELARIO called and spoke with Blanka about referral and Blanka accepted referral; CANDELARIO faxed referral and final orders/med list to [facility] attn Blanka fax [phone] and ph [phone]. Pt has all needed DME and no other concerns or dc needs expressed.
--- NOTE | 2018-04-02 14:10 | NUR ---
PATIENT DISCHARGED TO HOME WITH HOME HEALTH. DISCHARGE PAPERS REVIEWED AND SIGNED. NO PRESCRIPTIONS. IV REMOVED. INFORMATION GIVEN ON DIABETIC DIET. PATIENT DENIES ANY FURTHER NEEDS. PATIENT TAKEN BY WHEELCHAIR TO EXIT. LEFT WITH .
--- NOTE | 2018-04-07 12:20 | EEG ---
[address] [address] EEG STUDY REPORT Name: BETO OBREGON Room: [address] IN M.R.#: [id number] Admission: 03/28/18 Attend Phys: Kwadwo Kirkpatrick MD Discharge: 04/02/18 Date of : 42 Report #: [id number] THIS REPORT FOR: //name// CC: Kwadwo Kirkpatrick [facility] unknown DATE OF SERVICE: 03/29/2018 This patient is being evaluated for altered mental status. EEG was done by placing the electrode by standard 10-20 system of electrode placement. Both referential and sequential montages were used for recording. Background activity in this patient's EEG is about 7-8 Hz and 30-40 microvolts. It is a poorly formed background activity. This background activity is symmetrical. Photic stimulation was unremarkable. The patient went to sleep. That is associated with bilateral slowing and sleep spindles. Throughout the record, no active epileptiform activity was noticed. IMPRESSION: This is an abnormal EEG because it is disorganized and poorly formed. There is a nonspecific abnormality which can occur with encephalopathy, effect of psychotropic medication, dementia, etc. Clinical correlation is recommended. <ELECTRONICALLY SIGNED> By: Karlos Monet MD 04/07/18 1220 1222 [id number] Monet MD /nt
== END 2018-04-02 14:10 | disposition home health service (06) | DRG 871 ==
LOC: M.ERS 15:39 → M.ICU 18:32 → M.TBA-ER 18:32 → M.ICU 19:30 → M.2W 03-30 16:03 → M.3W 04-01 16:35
PROVIDERS: Personal Emergency Response Attendant; Specialist; ADMIT Internal Medicine
PROC: 02HV33Z Insertion of Infusion Device into Superior Vena Cava, Percutaneous Approach (ICD-10-PCS; principal; 2018-03-28)
DX: A41.9 Sepsis, unspecified organism (principal); G92 Toxic encephalopathy; J96.91 Respiratory failure, unspecified with hypoxia; N39.0 Urinary tract infection, site not specified; G89.29 Other chronic pain; M54.9 Dorsalgia, unspecified; E66.9 Obesity, unspecified; Z96.653 Presence of artificial knee joint, bilateral; E11.9 Type 2 diabetes mellitus without complications; I10 Essential (primary) hypertension; F41.9 Anxiety disorder, unspecified; F32.9 Major depressive disorder, single episode, unspecified; R19.7 Diarrhea, unspecified; B96.20 Unspecified Escherichia coli [E. coli] as the cause of diseases classified elsewhere; E78.5 Hyperlipidemia, unspecified; M19.90 Unspecified osteoarthritis, unspecified site; E86.0 Dehydration; Z96.1 Presence of intraocular lens; Z90.710 Acquired absence of both cervix and uterus; Z98.890 Other specified postprocedural states; Z88.8 Allergy status to other drugs, medicaments and biological substances; Z82.49 Family history of ischemic heart disease and other diseases of the circulatory system; Z68.29 Body mass index [BMI] 29.0-29.9, adult; Z98.42 Cataract extraction status, left eye; Z98.41 Cataract extraction status, right eye; Z79.2 Long term (current) use of antibiotics; Z79.4 Long term (current) use of insulin; Z79.899 Other long term (current) drug therapy